=== PATIENT | female | born 1950 | race Two or more races ===

== ENCOUNTER 2021-04-18 14:08 | Emergency (ER) | payer MEDICARE, OTHER ==
[~2021-04-18] VITALS: Ht 167.6 cm; Wt 70.3 kg
--- NOTE | 2021-04-18 14:36 | NUR ---
PT IS IN ROOM #1B. DR DUARTE EVALUATED THE PT.
--- NOTE | 2021-04-18 14:46 | NUR ---
PT WAS D/C'd TO HOME. D/C INSTRUCTIONS GIVEN TO THE PT BY DR DUARTE.
[2021-04-18 14:48] VITALS: BP 129/75
== END 2021-04-18 14:51 | disposition home or self-care (01) ==
LOC: ER 14:08
DX: S70.11XA Contusion of right thigh, initial encounter (principal); S30.0XXA Contusion of lower back and pelvis, initial encounter; W01.0XXA Fall on same level from slipping, tripping and stumbling without subsequent striking against object, initial encounter; Y92.89 Other specified places as the place of occurrence of the external cause; M06.9 Rheumatoid arthritis, unspecified
CPT/HCPCS: A4663